=== PATIENT | female | born 1980 | race Caucasian/White ===

== ENCOUNTER 2016-12-05 09:17 | Emergency (ER) | payer MEDICARE, MEDICAID ==
[2016-12-05] MEDS ORDERED: KETOROLAC 60 MG/2 ML VIAL IM ONE (10:27)
== END 2016-12-05 12:52 | disposition home or self-care (01) ==
LOC: ER 09:17
DX: N30.00 Acute cystitis without hematuria (principal); R10.2 Pelvic and perineal pain
CPT/HCPCS: 36415; 80053; 81001; 81025; 85025; 87088; 87491; 87591; 87800; 96372